=== PATIENT | male | born 1990 | race Caucasian/White ===

== ENCOUNTER 2022-05-14 12:52 | Emergency (ER) | payer BC, SELFPAY ==
[2022-05-14 13:09] VITALS: BMI 29.0
--- NOTE | 2022-05-14 13:09 | XR_ITS ---
PROCEDURE INFORMATION: Exam: XR Right Hand Exam date and time: 05/14/2022 1:13 PM Age: 31 years old Clinical indication: Pain and injury or trauma; Other: Crushed hand; Crushing; Right; Injury date: 05/08/2022; Patient HX: Pt's RT hand crushed last Sunday. C/O numbness w swelling in RT hand, w pain radiating down wrist; Additional info: Smashed hand TECHNIQUE: Imaging protocol: Radiologic exam of the Right hand. Views: 3 or more views. COMPARISON: No relevant prior studies available. FINDINGS: Bones/joints: Normal. Soft tissues: Diffuse soft tissue swelling. IMPRESSION: Acute nondisplaced spiral fracture 4th metacarpal. Diffuse soft tissue swelling at the level of the metacarpals.
--- NOTE | 2022-05-14 13:33 | HMH.EDUTC ---
[facility] [place] Disposition Clinical Impression: Right hand fracture Qualifiers: Encounter type: initial encounter Fracture type: closed Qualified Code(s): S62.91XA - Unspecified fracture of right wrist and hand, initial encounter for closed fracture Disposition: Home, Self-Care Condition on Discharge: Good Instructions: DI for a Hand Fracture, How to Take Care of Your Splint, Hand Fracture Additional Instructions: [facility] hand clinic phone number is [phone] (HAND) Please call them or your orthopedic physicians of choice (they need to either have a hand specialist or refer you to one that they trust). Make sure you take the disk with your x-rays on it to your orthopedic (hand) appointment. Rest the extremity, Elevate the extremity as tolerated while you are resting. Take ibuprofen for pain. I sent in a prescription to your pharmacy. Follow up with your regular doctor. GO TO THE ER FOR ANY WORSENING SYMPTOMS Prescriptions: Ibuprofen [Ibuprofen 800mg Tablet] 800 mg PO Q8HP PRN #30 tab PRN Reason: Moderate Pain Transmission Status: Received by [id number] Referrals: Provider,Referral, [Primary Care Provider] - Forms: Work/School Release Time of Disposition: 14:36 Medical Decision Making - Medical Records Medical records reviewed: No: I reviewed the patient's medical records. - William Inquiry Pt receiving controlled substance: No Vital Signs: 05/14/22 13:41 05/14/22 14:36 Temperature 98.6 F 98.6 F Temperature Source Oral Pulse Rate 74 Pulse Rate [Right] 74 Respiratory Rate 16 16 Blood Pressure 144/87 H Blood Pressure [Right Arm] 144/87 H Blood Pressure Mean [Right Arm] 106 Blood Pressure Source [Right Arm] Automatic Cuff Blood Pressure Position [Right Arm] Sitting 02 Sat by Pulse Oximetry 98 Oxygen Delivery Method Room Air - Radiology Data #1 Image(s): Hand Image Reviewed: Yes I reviewed the patient's radiology image, Yes I have reviewed radiologist's interpretation Preliminary Findings: Abnormal PROCEDURE INFORMATION: Exam: XR Right Hand Exam date and time: 05/14/2022 1:13 PM Age: 31 years old Clinical indication: Pain and injury or trauma; Other: Crushed hand; Crushing; Right; Injury date: 05/08/2022; Patient HX: Pt's RT hand crushed last Sunday. C/O numbness w swelling in RT hand, w pain radiating down wrist; Additional info: Smashed hand TECHNIQUE: Imaging protocol: Radiologic exam of the Right hand. Views: 3 or more views. COMPARISON: No relevant prior studies available. FINDINGS: Bones/joints: Normal. Soft tissues: Diffuse soft tissue swelling. IMPRESSION: Acute nondisplaced spiral fracture 4th metacarpal. Diffuse soft tissue swelling at the level of the metacarpals. Medical Decision Narrative: Dr. Forrester notified of this patient. He recommends referral to hand specialist after applying ulna gutter splint. [facility] [place] HPI - General Stated complaint: hand pain Time Seen by Provider: 05/14/22 13:33 - History of Present Illness Provider Complaint: He states that 6 days ago he got his right hand caught between 2 pieces of metal he was working with. Since then he has had right hand pain and swelling. - Related Data Previous Rx's Medication Instructions Recorded Ibuprofen [Ibuprofen 800mg 800 mg PO Q8HP PRN #30 tab 05/14/22 Tablet] Allergies Allergy/AdvReac Type Severity Reaction Status Date / Time No Known Allergies Allergy Verified 05/14/22 13:09 [facility] History - Hepatitis A Screen Attestation statement:: This patient has been screened for Hepatitis A risk factors. I have reviewed the patient's past medical history: Yes ROS Obtained: Yes All systems reviewed & no additional complaints - Constitutional Constitutional: Denies chills, Denies fever(s) - Musculoskeletal Musculoskeletal: Reports as p
[2022-05-14 13:41] VITALS: BP 144/87; PULSE 74; RESP 16; TEMP 37; O2SAT 98; BMI 28.1
[2022-05-14 14:36] VITALS: BP 144/87; PULSE 74; RESP 16; TEMP 37; O2SAT 98
== END 2022-05-14 14:40 | disposition home or self-care (01) ==
PROVIDERS: Emergency Provider Nurse Practitioner Family
DX: S62.91XA Unspecified fracture of right hand, initial encounter for closed fracture (principal)
CPT/HCPCS: 29085; 73130; 99212; G0463

== ENCOUNTER 2023-09-20 08:25 | Emergency (ER) | payer BC, SELFPAY ==
[2023-09-20 08:26] VITALS: BP 153/92; PULSE 95; RESP 18; TEMP 36.6; O2SAT 100; BMI 27.4
[2023-09-20 08:30] VITALS: BP 153/92; PULSE 87; O2SAT 100
--- NOTE | 2023-09-20 08:30 | PC.NURSE ---
Asked patient if he would like an ice pack; he denied at this time. Spouse at BS.
--- NOTE | 2023-09-20 08:32 | PC.NURSE ---
DR CEE AT BEDSIDE
--- NOTE | 2023-09-20 08:35 | XR_ITS ---
PROCEDURE INFORMATION: Exam: XR Right Foot Exam date and time: 09/20/2023 8:35 AM Age: 33 years old Clinical indication: Pain; Ankle and foot and lower leg; Right; Additional info: Pain with weight bearing, prior FX TECHNIQUE: Imaging protocol: Radiologic exam of the right foot. Views: 3 or more views. COMPARISON: CR XR ANKLE RT MIN 3V 09/20/2023 8:34 AM FINDINGS: Bones/joints: There is no evidence of acute fracture in any of the visualized osseous structures.. There is no evidence of malalignment or dislocation of any visualized joint. Mild degenerative changes in the tibiotalar joint Soft tissues: Normal. IMPRESSION: 1. There is no evidence of acute fracture in any of the visualized osseous structures.. 2. There is no evidence of malalignment or dislocation of any visualized joint.
--- NOTE | 2023-09-20 08:35 | XR_ITS ---
PROCEDURE INFORMATION: Exam: XR Right Tibia and Fibula Exam date and time: 09/20/2023 8:33 AM Age: 33 years old Clinical indication: Pain; Ankle and foot and lower leg; Right; Additional info: Pain with weight bearing, prior FX TECHNIQUE: Imaging protocol: Radiologic exam of the right tibia and fibula. Views: 2 views. COMPARISON: No relevant prior studies available. FINDINGS: Bones/joints: There is no evidence of acute fracture in any of the visualized osseous structures.. There is no evidence of malalignment or dislocation of any visualized joint. Soft tissues: Normal. IMPRESSION: 1. There is no evidence of acute fracture in any of the visualized osseous structures.. 2. There is no evidence of malalignment or dislocation of any visualized joint.
--- NOTE | 2023-09-20 08:35 | XR_ITS ---
PROCEDURE INFORMATION: Exam: XR Right Ankle Exam date and time: 09/20/2023 8:34 AM Age: 33 years old Clinical indication: Pain; Ankle and foot and lower leg; Right; Additional info: Pain with weight bearing, prior FX TECHNIQUE: Imaging protocol: Radiologic exam of the right ankle. Views: 3 or more views. COMPARISON: CR XR TIBIA FIBULA RT 2V 09/20/2023 8:33 AM FINDINGS: Bones/joints: Well corticated avulsion fracture off the distal aspect of the medial malleolus of unknown age. Soft tissues: Normal. IMPRESSION: Well corticated avulsion fracture off the distal aspect of the medial malleolus of unknown age.
--- NOTE | 2023-09-20 08:35 | HMH.EDGENADL ---
Discharge Plan Disposition Patient Disposition: Home, Self-Care Prescriptions Prescriptions: No Action No Known Home Medications Referrals Follow up/Referrals: Maira Cao APRN [Primary Care Provider] - See instructions Fernando Easley DO [Staff Physician] - See instructions Activity Restrictions/Add. Instructions Additional Instructions/Restrictions: You were evaluated in the emergency department today. Please take Tylenol and ibuprofen at home every 4-6 hours as needed for pain. Follow-up with your primary care provider. Follow-up with orthopedics should your pain persist. Return to the emergency department for new or worsening symptoms. Clinical Impressions Clinical Impression: Acute right ankle pain Instructions Patient Instructions: DI for Ankle Pain Discharge ED Provider: Marisol Wright General Adult HPI General Chief complaint: PAIN Stated complaint: right ankle pain, no known accident Time Seen by Provider: 09/20/23 08:28 History of Present Illness HPI narrative: This patient is a 33-year-old male presenting to the emergency department for evaluation with concern for right ankle pain. Patient reports that he has a history of ankle fracture in around [id number]. He notes that since yesterday, he has had pain in his right ankle when bearing weight. He notes that it is mostly in the ankle joint itself, mostly in the posterior aspect. 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 He still has intact range of motion. He denies any redness, warmth, swelling, wounds, fevers, chills, or other concerns. No history of gouty arthritis or septic joint in the past. No recent fevers, chills, or other concerns. Related Data Home Medications Medication Instructions Recorded Confirmed No Known Home Medications 08/23/23 08/23/23 Allergies Allergy/AdvReac Type Severity Reaction Status Date / Time No Known Allergies Allergy Verified 08/23/23 15:40 [facility] Disclaimer: The information contained in this section may have been updated after the patient was seen, as this information can be updated by other users. Medical History Encounter for annual physical exam Social History Smoking Status: Never smoker alcohol intake: current substance use type: denies use current occupational status: employed Travel in the last 8 weeks: None household members: spouse and children (Two) housing: house ROS Obtained: Yes All systems reviewed & no additional complaints except as documented Physical Exam General General appearance: alert and in no apparent distress Head Head exam: atraumatic and normocephalic Eye Eye exam: Present normal appearance, PERRL and EOMI ENT ENT exam: Present normal exam, normal oropharynx, mucous membranes moist and normal external ear exam Neck Neck exam: Present normal inspection, full ROM and trachea midline; Absent tenderness Chest Chest inspection: Present normal inspection and symmetric chest wall rise; Absent tenderness Respiratory Respiratory exam: Present normal lung sounds bilaterally; Absent respiratory distress, wheezes, stridor or accessory muscle use Cardiovascular Cardiovascular exam: Present regular rate and normal rhythm Abdominal Exam Abdominal exam: Present soft; Absent distention, tenderness or guarding Extremities Exam Extremities exam: Present tenderness (Right ankle joint), normal capillary refill and other (Right ankle joint tenderness to palpation with pain with plantarflexion, however range of motion is intact otherwise. No redness, warmth, wounds, swelling, or other concerns. Neurovascularly intact distally); Absent full ROM (Plantarflexion of the right ankle limited secondary to pain.), edema or joint swelling Back Exam Back exam: Present no
--- NOTE | 2023-09-20 08:43 | PC.NURSE ---
PT TO XR
--- NOTE | 2023-09-20 08:49 | PC.NURSE ---
PT RETURNED FROM XR
[2023-09-20 09:00] VITALS: BP 151/91; PULSE 92; RESP 18; O2SAT 100
--- NOTE | 2023-09-20 09:00 | PC.NURSE ---
DR CEE AT BEDSIDE TO UPDATE PT
[2023-09-20 09:55] VITALS: BP 133/87; PULSE 90; RESP 18; TEMP 36.6; O2SAT 99
--- NOTE | 2023-09-28 11:21 | PC.NURSE ---
Accessed pt chart to complete ortho form
== END 2023-09-20 09:55 | disposition home or self-care (01) ==
PROVIDERS: Emergency Provider Emergency Medicine; PCP Nurse Practitioner
DX: M25.571 Pain in right ankle and joints of right foot (principal)
CPT/HCPCS: 73590; 73610; 73630; 96372; 99284